=== PATIENT | male | born 1945 ===

== ENCOUNTER 2024-05-08 08:23 | Outpatient (CLI) | payer MEDICARE, SELFPAY ==
--- NOTE | 2024-05-08 08:15 | RT.EKG_ITS ---
APPROVED REPORT Exam: Resting ECG Reason for Exam: tachycardia Patient Location: O HR:38 bpm ECG Measurements Heart Rate 38 AXIS ME [id number] P [id number] QRSd 92 QRS 15 QT 538 T 85 QTc 428 Conclusion Junctional rhythm...absent P waves, slow V-rate
== END 2024-05-08 08:24 | disposition home or self-care (01) ==
LOC: DI.CARD 08:24
PROVIDERS: PCP Internal Medicine; Visit Provider Internal Medicine Cardiovascular Disease
DX: R00.0 Tachycardia, unspecified (principal)
CPT/HCPCS: 93010

== ENCOUNTER → 2024-05-08 13:14 | Outpatient (BNVA) | payer MEDICARE, SELFPAY | PROVIDERS: PCP Internal Medicine; Referring Provider Internal Medicine; Visit Provider Internal Medicine Cardiovascular Disease | DX: I48.91 Unspecified atrial fibrillation (principal); R00.1 Bradycardia, unspecified | CPT/HCPCS: 93005; 99203 ==

== ENCOUNTER → 2024-06-06 10:57 | Outpatient (BNVA) | payer MEDICARE, SELFPAY | PROVIDERS: PCP Internal Medicine; Referring Provider Internal Medicine; Visit Provider Internal Medicine Cardiovascular Disease | DX: Z95.0 Presence of cardiac pacemaker (principal); N18.6 End stage renal disease | CPT/HCPCS: 99213 ==

== ENCOUNTER 2024-11-06 08:32 | Outpatient (CLI) | payer MEDICARE, SELFPAY ==
--- NOTE | 2024-11-06 08:30 | RT.EKG_ITS ---
APPROVED REPORT Exam: Resting ECG Reason for Exam: bradycardia Patient Location: O HR:134 bpm ECG Measurements Heart Rate 134 AXIS MO [id number] P [id number] QRSd 149 QRS 29 QT 486 T 118 QTc 726 Conclusion Atrial fibrillation...? atrial activity Left bundle branch block...QRSd>120, broad/notched R
== END 2024-11-06 08:33 | disposition home or self-care (01) ==
LOC: DI.CARD 08:32
PROVIDERS: PCP Internal Medicine; Visit Provider Internal Medicine Cardiovascular Disease
DX: R00.1 Bradycardia, unspecified (principal); Z95.0 Presence of cardiac pacemaker
CPT/HCPCS: 93010

== ENCOUNTER → 2024-11-06 13:39 | Outpatient (BNVA) | payer MEDICARE, SELFPAY | PROVIDERS: PCP Internal Medicine; Referring Provider Internal Medicine; Visit Provider Internal Medicine Cardiovascular Disease | DX: Z95.810 Presence of automatic (implantable) cardiac defibrillator (principal); R00.1 Bradycardia, unspecified | CPT/HCPCS: 93005; 93279 ==